=== PATIENT | female | born 1960 | race Native Hawaiian/Other Pacific Islander ===

== ENCOUNTER 2018-01-09 20:16 | Emergency (ER) | payer OTHER ==
[2018-01-09 21:04] VITALS: BMI 30.3
[2018-01-09 21:06] VITALS: TEMP 99.5; O2SAT 98
--- NOTE | 2018-01-09 22:29 | ED PDOC ---
Arrival/HPI - General Chief Complaint: GI Problem Historian: Patient - History of Present Illness Narrative History of Present Illness (Text): 01/09/18 22:26 57yo female with past medical history of hypertension,anxiety who came to Emergency department for evaluation. She reports having 3 episodes of diarrhea after eating a spicy food she bought tonight. States the first two with red with pieces of spices and then the 3rd BM was brown. States it was not bloody. She came to Emergency department because she was worried and wants to know what caused the discoloration of her BM. She denies abdominal pain, nausea, vomiting, diarrhea, urinary symptoms, any other complaint. Past Medical History - Provider Review Nursing Documentation Reviewed: Yes - Past History Past History: Non-Contributing (HTN, borderline high cholesterol) - Infectious Disease Hx of Infectious Diseases: None - Tetanus Immunization Tetanus Immunization: Unknown - Cardiac Hx Hypertension: Yes - Pulmonary Hx Respiratory Disorders: No - Neurological Hx Neurological Disorder: No - HEENT Hx HEENT Disorder: No - Renal Hx Renal Disorder: No - Endocrine/Metabolic Hx Endocrine Disorders: No - Hematological/Oncological Hx Blood Disorders: No - Integumentary Hx Dermatological Disorder: No - Musculoskeletal/Rheumatological Hx Musculoskeletal Disorders: No - Gastrointestinal Hx Gastrointestinal Disorders: No - Genitourinary/Gynecological Hx Genitourinary Disorders: No - Psychiatric Hx Psychophysiologic Disorder: Yes Hx Anxiety: Yes Hx Depression: Yes Hx Substance Use: No - Past Surgical History Past Surgical History: No Previous - Anesthesia Hx Anesthesia: No Hx Anesthesia Reactions: No Hx Malignant Hyperthermia: No - Suicidal Assessment Feels Threatened In Home Enviroment: No Family/Social History - Physician Review Nursing Documentation Reviewed: Yes Family/Social History: Unknown Family HX Smoking Status: Never Smoked Hx Alcohol Use: No Hx Substance Use: No Hx Substance Use Treatment: No Allergies/Home Meds Allergies/Adverse Reactions: Allergies penicillin G Allergy (Verified 01/09/18 21:04) RASH Home Medications: Home Meds Medication Instructions Recorded Confirmed RX: Clonazepam [Klonopin Wafers] 0.25 mg PO TID PRN 02/23/15 01/09/18 RX: Lisinopril [Zestril] 5 mg PO DAILY 04/28/16 01/09/18 Clonazepam [Klonopin] 0.5 mg PO DAILY 07/27/17 01/09/18 amLODIPine [Norvasc] 5 mg PO DAILY 07/27/17 01/09/18 Review of Systems - Physician Review All systems were reviewed & negative as marked: Yes - Review of Systems Constitutional: Normal Eyes: Normal ENT: Normal Respiratory: Normal Cardiovascular: Normal Gastrointestinal: Diarrhea. absent: Abdominal Pain, Constipation, Nausea, Vomiting, Hematemesis Genitourinary Female: Normal Musculoskeletal: Normal Skin: Normal Neurological: Normal Endocrine: Normal Hemo/Lymphatic: Normal Psychiatric: Normal Physical Exam Vital Signs Reviewed: Yes Vital Signs Temp Pulse Resp BP Pulse Ox 01/09/18 21:06 99.5 F 137 H 20 165/87 H 98 Temperature: Afebrile Blood Pressure: Normal Pulse: Regular Respiratory Rate: Normal Appearance: Positive for: Well-Appearing, Non-Toxic, Comfortable Pain Distress: None Mental Status: Positive for: Alert and Oriented X 3 - Systems Exam Head: Present: Atraumatic, Normocephalic Pupils: Present: PERRL Extroacular Muscles: Present: EOMI Conjunctiva: Present: Normal Mouth: Present: Moist Mucous Membranes Neck: Present: Normal Range of Motion Respiratory/Chest: Present: Clear to Auscultation, Good Air Exchange. No: Respiratory Distress, Accessory Muscle Use Cardiovascular: Present: Regular Rate and Rhythm, Normal S1, S2. No: Murmurs Abdomen: Present: Normal Bowel Sounds, Other (Soft). No: Tenderness, Distention, Peritoneal Signs, Rebound, Guarding, McBurney's Point Tender, Rovsing's Sign Present Back: Present: Normal Inspection Upper Extremity: Present: Normal Inspection. No: Cyanosis, Edema Lower Extremity: Present: Normal Inspection. No: Edema Neurological: Present: GCS=15, CN II-XII Intact, Speech Normal Skin: Present: Warm, Dry, Normal Color. No: Rashes Psychiatric: Present: Alert, Oriented x 3, Normal Insight, Normal Concentration Medical Decision Making ED Course and Treatment: 01/10/18 01:20 PT presented for stated history. She was not in any distress. Smiling and laughing in Emergency department. Hemodynamically stable. Her PE was benign. She was reassure and referred to a GI. Disposition/Present on Arrival - Present on Arrival Any Indicators Present on Arrival: No History of DVT/PE: No History of Uncontrolled Diabetes: No Urinary Catheter: No History of Decub. Ulcer: No History Surgical Site Infection Following: None - Disposition Have Diagnosis and Disposition been Completed?: Yes Diagnosis: Diarrhea Disposition: HOME/ ROUTINE Disposition Time: 22:30 Patient Plan: Discharge Condition: STABLE Discharge Instructions (ExitCare): Diarrhea in Adolescents and Adults Additional Instructions: Follow up with your doctor/GI Return to Emergency department for any new or worsening symptoms Referrals: Roberto Velasquez DO [Staff Provider] - Follow up with primary Forms: [employer] (Czech)
[2018-01-09 22:50] VITALS: BP 151/82; PULSE 100; RESP 18
== END 2018-01-09 22:50 | disposition home or self-care (01) ==
LOC: ED 20:16
DX: R19.7 Diarrhea, unspecified (principal); I10 Essential (primary) hypertension